=== PATIENT | female | born 1950 | race Caucasian/White ===

== ENCOUNTER → 2017-08-11 15:14 | Outpatient (CLI) | payer MEDICARE, OTHER, SELFPAY ==
--- NOTE | 2017-08-14 14:41 | PM.PFT.1 ---
Pulmonary Function Test Referral & Results Date Patient Seen: 08/11/17 Requesting provider: Asia Hoskins Results: The spirometry demonstrates an FVC of 3.04 L which is 102% of predicted. The FEV1 was measured at 2.01 L which is 88% of predicted. The FEV1/FVC ratio was 66 which is 85% of predicted. Following the administration of bronchodilator there was no appreciable change. Lung volumes show an SVC of 3.33 L which is 118% of predicted. The diffusing capacity was measured at 19.33 which is 84% of predicted. No hemoglobin value was provided, so no correction for potential anemia could be made, if appropriate. The maximum voluntary ventilation was reduced. Interpretation: This study demonstrates mild obstructive lung disease without evidence of benefit following the administration of bronchodilator
== END ==
PROVIDERS: Visit Provider Nurse Practitioner Family
DX: R05 Cough (principal)
CPT/HCPCS: 94010; 94060; 94726; 94729

== ENCOUNTER → 2018-04-15 12:01 | Outpatient (CLI) | payer MEDICARE, OTHER, SELFPAY ==
--- NOTE | 2018-04-15 | DI.US.S_ITS ---
PROCEDURE: US ABDOMEN COMPLETE INDICATIONS: CIRRHOSIS SURVEILLANCE TECHNIQUE: Real-time scanning was performed of the abdominal and retroperitoneal organs, with image documentation. COMPARISON: [facility], CT, ABDOMEN/PELVIS WITH CONTRAST, 09/14/2014, 22:06. FINDINGS: Liver: Liver is normal in size and moderately heterogeneous in echotexture with slight nodular margination along it's capsular border. There is a focal low density 8 x 9 x 9 mm focus at the right posterior liver margin, middle third of the liver parenchyma, appearing to correlate with the finding from CT scan in 09/14/14. But more anteriorly within the right hepatic lobe near the junction with the left medial hepatic segment there is a 7 x 6 by 8mm mildly hyperechoic structure that is rounded, somewhat indistinctly marginated potentially a manifestation of early hepatoma. Gallbladder: The gallbladder appears normal Biliary ducts: Intrahepatic bile ducts are non-dilated. Extrahepatic bile duct caliber measures 4.0 mm. Normal is 6-7 mm or less in diameter, or 10 mm or less post-cholecystectomy. Pancreas: Visualized portions of the pancreas are sonographically normal. Spleen: Spleen is normal in size and homogeneous in echotexture. Kidneys: Kidneys are normal in size and echotexture. Right kidney measures 9.7 cm long; left kidney measures 11.2 cm long. No hydronephrosis or nephrolithiasis. No solid masses. Aorta: Visualized aorta is normal in caliber at less than 3 cm. Iliacs: Proximal common iliac arteries are normal in caliber at less than 2.5 cm. IVC: Intrahepatic inferior vena cava is patent. Miscellaneous: No free abdominal fluid. Portal vein flow direction is normal. The spleen is at the upper limits of normal. IMPRESSION: Cirrhotic change involving the liver is present, including hepatic nodular margination which appears stable over time. 2 separate small liver lesions are present within the right hepatic lobe, one of which may have been present on prior CT scanning from August 2014. Followup by hepatic neoplasm MR scanning without and with contrast likely this warranted given these findings. Alternatively, followup by repeat ultrasound in 3-6 months may be warranted. Dictated by: Tobias Islas M.D. on 04/16/2018 at 10:11 Approved by: Tobias Islas M.D. on 04/16/2018 at 10:19
[2018-04-15 13:35] LABS: Add Manual Diff / Slide Review NO; Basophils Absolute Auto 0 /uL (0-100); Basophils Percent Auto 0.3 % (0-2); Eosinophils Absolute Auto 100 /uL (0-450); Eosinophils Percent Auto 2.2 % (2-4); Hematocrit 37.9 % (36-46); Lymphocytes Absolute Auto 1700 /uL (1100-4500); Lymphocytes Percent Auto 35.5 % (25-40); Mean Corpuscular HGB Conc 31.7 % (30-36); Mean Corpuscular Hemoglobin 22.6 PG (26-34); Mean Corpuscular Volume 71.2 fL (80-100); Monocytes Absolute Auto 300 /uL (0-900); Monocytes Percent Auto 6.1 % (3-14); Neutrophils Absolute Auto 2600 /uL (1500-7000); Neutrophils Percent Auto 55.9 % (50-75); Platelet Count 118 X10^3/uL (150-400); Red Blood Cell Count 5.32 X10^6/uL (4.0-5.2); Red Cell Distribution Width 16.6 % (11.6-14.8); White Blood Cell Count 4.7 X10^3/uL (4.5-11.0)
[2018-04-15 13:52] LABS: INR 1.2 (0.9-1.3); Prothrombin Time 13.5 SECONDS (10.1-12.7)
[2018-04-15 14:08] LABS: Alanine Aminotransferase 37 IU/L (9-52); Albumin 4.9 g/dL (3.5-5.0); Albumin Globulin Ratio 1.5 (1.0-2.8); Alkaline Phosphatase 84 U/L (38-126); Aspartate Aminotransferase 24 IU/L (14-36); BUN Creatinine Ratio 24.3 (6-22); Bilirubin Total 0.6 mg/dL (0.2-1.3); Blood Urea Nitrogen 17 mg/dL (7-17); Calcium 9.9 mg/dL (8.4-10.2); Carbon Dioxide 26 mmol/L (22-32); Chloride 103 mmol/L (98-107); Estimated Glomerular Filt Rate > 60.0 mL/min (>60); Globulin 3.3 g/dL (1.7-4.1); Glucose 94 mg/dL (80-110); HEMOLYSIS < 15 (0-50); Potassium 4.5 mmol/L (3.4-5.1); Sodium 141 mmol/L (137-145); Total Protein 8.2 g/dL (6.3-8.2)
== END ==
PROVIDERS: PCP Nurse Practitioner Family; Visit Provider Internal Medicine Gastroenterology
DX: K74.60 Unspecified cirrhosis of liver (principal); K76.9 Liver disease, unspecified
CPT/HCPCS: 36415; 76700; 80053; 85025; 85610

== ENCOUNTER → 2019-02-10 10:58 | Outpatient (CLI) | payer MEDICARE, OTHER, SELFPAY ==
--- NOTE | 2019-02-10 | DI.RAD.S_ITS ---
PROCEDURE: XR CHEST 2V INDICATIONS: CHRONIC COUGH TECHNIQUE: 2 views of the chest were acquired. COMPARISON: None. FINDINGS: Surgical changes and devices: None. Lungs and pleura: Lungs are clear. No pleural effusions or pneumothorax. Mediastinum: Mediastinal contours are normal. Heart size is normal. Bones and chest wall: No suspicious bony abnormalities. Soft tissues appear unremarkable. IMPRESSION: No acute cardiopulmonary disease. Dictated by: Mary Koch M.D. on 02/10/2019 at 14:25 Approved by: Mary Koch M.D. on 02/10/2019 at 14:26
== END ==
PROVIDERS: PCP Family Medicine; Visit Provider Family Medicine
DX: R05 Cough (principal)
CPT/HCPCS: 71046

== ENCOUNTER → 2019-09-29 12:45 | Outpatient (CLI) | payer MEDICARE, OTHER, SELFPAY ==
--- NOTE | 2019-09-29 | DI.RAD.S_ITS ---
PROCEDURE: XR LUMBAR SPINE 2-3V INDICATIONS: Lumbago with sciatica, right side TECHNIQUE: 3 views of the lumbar spine were acquired. COMPARISON: None. FINDINGS: Bones: 5 [id number] vertebrae are present. Mild levoscoliosis centered at the L4 level. Trace multilevel retrolisthesis. Multilevel disc degeneration, most notably and moderate at the L2-L3 and L3-L4 levels. Moderate L4-L5 and L5-S1 facet joint arthropathy. No vertebral body compression fractures. No suspicious bony lesions. Soft tissues: Overlying bowel gas pattern is normal. No suspicious soft tissue calcifications. IMPRESSION: Multilevel spondylosis. Dictated by: David Thompson [facility] Interpreted: Mary Koch MD on 09/29/2019 at 13:36 Approved by: Mary Koch M.D. on 09/29/2019 at 17:07
== END ==
PROVIDERS: PCP Family Medicine; Referring Provider Family Medicine; Visit Provider Family Medicine
DX: M54.41 Lumbago with sciatica, right side (principal); M47.816 Spondylosis without myelopathy or radiculopathy, lumbar region; M47.817 Spondylosis without myelopathy or radiculopathy, lumbosacral region; G89.29 Other chronic pain
CPT/HCPCS: 72100

== ENCOUNTER → 2020-06-19 12:28 | Outpatient (CLI) | payer MEDICARE, OTHER, SELFPAY ==
[2020-06-19 20:11] LABS: Add Manual Diff / Slide Review NO; Basophils Absolute Auto 0 /uL (0-100); Basophils Percent Auto 0.3 % (0-2); Eosinophils Absolute Auto 100 /uL (0-450); Eosinophils Percent Auto 3.1 % (2-4); Hematocrit 34.3 % (36-46); Hemoglobin 10.9 g/dL (12.0-16.0); Lymphocytes Absolute Auto 1100 /uL (1100-4500); Lymphocytes Percent Auto 27.3 % (25-40); Mean Corpuscular HGB Conc 31.8 % (30-36); Mean Corpuscular Volume 72.2 fL (80-100); Monocytes Absolute Auto 300 /uL (0-900); Monocytes Percent Auto 7.4 % (3-14); Neutrophils Absolute Auto 2400 /uL (1500-7000); Neutrophils Percent Auto 61.9 % (50-75); Platelet Count 149 X10^3/uL (150-400); Red Blood Cell Count 4.75 X10^6/uL (4.0-5.2); Red Cell Distribution Width 16.1 % (11.6-14.8); White Blood Cell Count 3.9 X10^3/uL (4.5-11.0)
[2020-06-19 20:20] LABS: HEMOLYSIS < 15 (0-50); Iron 92 ug/dL (37-170)
[2020-06-19 20:29] LABS: Percent Iron Saturation 25 % (15-50); Total Iron Binding Capacity 369 ug/dL (265-497); Transferrin 293 mg/dL (206-381)
[2020-06-19 20:51] LABS: Ferritin 42 ng/mL (11-264)
== END ==
PROVIDERS: PCP Family Medicine; Visit Provider Family Medicine
DX: K76.6 Portal hypertension (principal); D56.9 Thalassemia, unspecified
CPT/HCPCS: 82728; 83540; 83550; 85025

== ENCOUNTER 2020-07-27 17:45 | Emergency (ER) | payer MEDICARE, OTHER, SELFPAY ==
[2020-07-27 18:01] VITALS: BP 188/89; PULSE 71; RESP 18; TEMP 37.1; O2SAT 100; BMI 27.7
--- NOTE | 2020-07-27 18:06 | DI.RAD.S_ITS ---
PROCEDURE: XR CHEST 2V INDICATIONS: Shortness of breath TECHNIQUE: 2 views of the chest were acquired. COMPARISON: [facility], CR, XR CHEST 2V, 02/10/2019, 11:09. FINDINGS: Surgical changes and devices: None. Lungs and pleura: Lungs are clear. No pleural effusions or pneumothorax. Mediastinum: Mediastinal contours are normal. Heart size is normal. Bones and chest wall: No suspicious bony abnormalities. Soft tissues appear unremarkable. IMPRESSION: No acute cardiopulmonary process demonstrated radiographically. Dictated by: Tyrell Lee M.D. on 07/27/2020 at 18:31 Approved by: Tyrell Lee M.D. on 07/27/2020 at 18:31
--- NOTE | 2020-07-27 18:07 | PC.NURSE ---
Being treated with iron infusions for anemia.
[2020-07-27 18:16] LABS: Add Manual Diff / Slide Review NO; Basophils Absolute Auto 0 /uL (0-100); Basophils Percent Auto 0.4 % (0-2); Eosinophils Absolute Auto 100 /uL (0-450); Eosinophils Percent Auto 2.7 % (2-4); Hemoglobin 11.3 g/dL (12.0-16.0); Lymphocytes Absolute Auto 1400 /uL (1100-4500); Lymphocytes Percent Auto 30.2 % (25-40); Mean Corpuscular HGB Conc 32.1 % (30-36); Mean Corpuscular Hemoglobin 23.5 PG (26-34); Mean Corpuscular Volume 73.1 fL (80-100); Monocytes Absolute Auto 300 /uL (0-900); Monocytes Percent Auto 7.5 % (3-14); Neutrophils Absolute Auto 2700 /uL (1500-7000); Neutrophils Percent Auto 59.2 % (50-75); Platelet Count 126 X10^3/uL (150-400); Red Blood Cell Count 4.79 X10^6/uL (4.0-5.2); Red Cell Distribution Width 18.5 % (11.6-14.8); White Blood Cell Count 4.6 X10^3/uL (4.5-11.0)
[2020-07-27 18:24] LABS: Alanine Aminotransferase 42 IU/L (<35); Albumin 4.4 g/dL (3.5-5.0); Albumin Globulin Ratio 1.4 (1.0-2.8); Alkaline Phosphatase 94 U/L (38-126); Aspartate Aminotransferase 41 IU/L (14-36); BUN Creatinine Ratio 34.8 (6-22); Bilirubin Total 0.5 mg/dL (0.2-1.3); Blood Urea Nitrogen 24 mg/dL (7-17); Calcium 9.4 mg/dL (8.4-10.2); Carbon Dioxide 22 mmol/L (22-32); Chloride 107 mmol/L (98-107); Estimated Glomerular Filt Rate > 60.0 mL/min (>60); Globulin 3.1 g/dL (1.7-4.1); Glucose 91 mg/dL (80-110); HEMOLYSIS 38 (0-50); Lactate (Lactic Acid) 0.9 mmol/L (0.7-2.1); Sodium 138 mmol/L (137-145); Total Protein 7.5 g/dL (6.3-8.2)
--- NOTE | 2020-07-27 18:48 | ED.SOB ---
HPI - SOB/Dyspnea General Chief Complaint: Shortness of Breath/Dyspnea Stated Complaint: SOB Time Seen by Provider: 07/27/20 17:59 Source: patient Mode of arrival: Family Vehicle Limitations: no limitations History of Present Illness HPI Narrative: 69F former smoker with history of liver disease, COPD, and anemia presents with her with a chief complaint of increasing shortness of breath with exertion for the past 2 weeks. She denies any chest pain, pressure, heaviness, nausea, vomiting. She denies any fever or chills. She has had no nausea or vomiting. She denies any abdominal pain, constipation or vaginal bleeding. She denies recent travel, history of blood clot or cancer. She denies any orthopnea, weight gain or swelling in her lower extremities. MD Complaint: shortness of breath Onset (ago): week(s) Severity: moderate Consistency/Duration: constant Relieving factors: rest Exacerbating factors: exertion Known history of: COPD Associated symptoms: denies other symptoms Treatment prior to arrival: none Related Data Home oxygen amount: none Home Medications Medication Instructions Recorded Confirmed albuterol sulfate 90 mcg/actuation 2 puff INHALATION Q4H PRN g 06/18/20 06/19/20 aerosol inhaler omeprazole 20 mg capsule,delayed 20 mg PO BID 06/18/20 06/19/20 release Previous Rx's Medication Instructions Recorded estradiol [Vagifem] 0 VG INSTRUCTE #24 tab 01/02/16 Allergies Allergy/AdvReac Type Severity Reaction Status Date / Time latex Allergy Unknown UNKNOWN Verified 07/27/20 18:01 ADHESIVES Allergy Mild RED RASH Uncoded 07/27/20 18:01 No Known Allergies Allergy Uncoded 07/27/20 18:01 Review of Systems Constitutional Constitutional: Denies chills, Denies fatigue, Denies fever(s), Denies frequent falls, Denies lethargy and Denies weakness Eyes Eyes: Denies change in vision, Denies eye discharge, Denies irritation and Denies loss of vision ENT Ears, Nose, Mouth, and Throat: Denies change in voice, Denies dizziness, Denies neck pain, Denies sore throat and Denies throat swelling Cardiovascular Cardiovascular: Denies chest pain, Denies irregular heart rhythm, Denies lightheadedness, Denies palpitations, Reports dyspnea, Reports dyspnea on exertion and Denies orthopnea Respiratory Respiratory: Denies cough, Reports dyspnea, Reports dyspnea on exertion and Denies wheezing Gastrointestinal Gastrointestinal: Denies abdominal pain, Denies change in bowel habits, Denies diarrhea, Denies nausea and Denies vomiting Musculoskeletal Musculoskeletal: Denies neck pain and Denies numbness Integumentary/Breasts Skin/Breast: Denies pruritus, Denies erythema, Denies rash and Denies wounds Neurologic Neurologic: Denies behavioral changes, Denies confusion, Denies dizziness, Denies frequent falls, Denies loss of vision, Denies numbness and Denies weakness Psychiatric Psychiatric: Denies anxiety, Denies behavioral changes, Denies confusion, Denies depression, Denies homicidal ideation and Denies suicidal ideation Endocrine Endocrine: Denies fatigue, Denies flushing and Denies palpitations Hematologic/Lymphatic Hematologic/Lymphatic: Denies easy bruising Allergic/Immunologic Allergic/Immunologic: Denies urticaria, Denies throat swelling and Denies wheezing Patient History Medical History Hearing loss Hepatitis C Liver disease Family History Father Cancer Sister Diabetes mellitus History of being obese Social History Smoking Status: Former smoker Smoking Status: Former smoker tobacco type: cigarettes and vaping alcohol intake frequency: 0-2 drinks per day Alcohol type: wine Substance Use Type: marijuana Exam Narrative Exam Narrative: GENERAL: [69] year old patient appears stated age. Well-developed patient, in mild distress. HEAD: Atraumatic. Normocephalic. EYES: Pupils equal round and reactive. Extraocular motions intact. No scleral icterus. No injection or drainage. ENT: Nose without bleeding, purulent drainage. Throat without erythema, tonsillar hypertrophy or exudate. Airway patent. NECK: Trachea midline. Non tender CARDIOVASCULAR: Regular rate and rhythm without murmurs, gallops, or rubs. RESPIRATORY: Clear to auscultation. Breath sounds equal bilaterally. No wheezes, rales, or rhonchi. GASTROINTESTINAL: Abdomen soft, non-tender, nondistended. EXTREMITIES: No edema or joint tenderness. BACK: Nontender without deformity or crepitance. No flank tenderness. NEURO: AOx3. SKIN: No rash or erythema of visible areas Initial Vital Signs Initial Vital Signs: Vital Signs Temperature 98.7 F 07/27/20 18:01 Pulse Rate 71 07/27/20 18:01 Respiratory Rate 18 07/27/20 18:01 Blood Pressure 188/89 H 07/27/20 18:01 Pulse Oximetry 100 07/27/20 18:01 Course Orders Ordered: ED Orders 07/27/20 18:06 XR chest 2V Stat EKG-12 Lead Stat Measure peak expiratory flow ONCE RT Consult Eval and Treat Now 07/27/20 18:11 Complete Blood Count AUTO DIFF Stat Comprehensive Metabolic Panel Stat Lactate (Lactic Acid) Stat NT-proBNP (BNP-Adult 18+) Stat Troponin & CK Cardiac Panel Stat 07/27/20 20:21 CT angio chest PE protocol Stat Vital Signs Vital signs: Vital Signs - 8 hr 07/27/20 18:54 07/27/20 19:00 07/27/20 19:01 Pulse Rate 63 62 62 Blood Pressure 159/71 H Pulse Oximetry 99 97 96 MDM - SOB/Dyspnea Lab Data Result diagrams: 07/27/20 18:11 07/27/20 18:11 Labs: Lab Results 07/27/20 07/27/20 07/27/20 Range/Units 18:11 18:11 18:11 WBC 4.6 (4.5-11.0) X10^3/uL RBC 4.79 (4.0-5.2) X10^6/uL Hgb 11.3 L (12.0-16.0) g/dL Hct 35.0 L (36-46) % MCV 73.1 L (80-100) fL MCH 23.5 L (26-34) PG MCHC 32.1 (30-36) % RDW 18.5 H (11.6-14.8) % Plt Count 126 L (150-400) X10^3/uL Neut % (Auto) 59.2 (50-75) % Lymph % (Auto) 30.2 (25-40) % [place] % (Auto) 7.5 (3-14) % Eos % (Auto) 2.7 (2-4) % Baso % (Auto) 0.4 (0-2) % Neut # (Auto) 2700 (6182-6882) /uL Lymph # (Auto) 1400 (7641-1317) /uL [place] # (Auto) 300 (0-900) /uL Eos # (Auto) 100 (0-450) /uL Baso # (Auto) 0 (0-100) /uL Sodium 138 (137-145) mmol/L Potassium 4.0 (3.4-5.1) mmol/L Chloride 107 (98-107) mmol/L Carbon Dioxide 22 (22-32) mmol/L BUN 24 H (7-17) mg/dL Creatinine 0.69 (0.52-1.04) mg/dL Estimated GFR > 60.0 (>60) mL/min BUN/Creatinine Ratio 34.8 H (6-22) Glucose 91 (80-110) mg/dL Lactate 0.9 (0.7-2.1) mmol/L Calcium 9.4 (8.4-10.2) mg/dL Total Bilirubin 0.5 (0.2-1.3) mg/dL AST 41 H (14-36) IU/L ALT 42 H (<35) IU/L Alkaline Phosphatase 94 (38-126) U/L Total Creatine Kinase (30-135) U/L CK-MB (CK-2) CK-MB (CK-2) Rel Index Troponin I (0.01-0.034) ng/mL NT-Pro-B Natriuret Pep (<125) pg/mL Total Protein 7.5 (6.3-8.2) g/dL Albumin 4.4 (3.5-5.0) g/dL Globulin 3.1 (1.7-4.1) g/dL Albumin/Globulin Ratio 1.4 (1.0-2.8) 07/27/20 Range/Units 18:11 WBC (4.5-11.0) X10^3/uL RBC (4.0-5.2) X10^6/uL Hgb (12.0-16.0) g/dL Hct (36-46) % MCV (80-100) fL MCH (26-34) PG MCHC (30-36) % RDW (11.6-14.8) % Plt Count (150-400) X10^3/uL Neut % (Auto) (50-75) % Lymph % (Auto) (25-40) % [place] % (Auto) (3-14) % Eos % (Auto) (2-4) % Baso % (Auto) (0-2) % Neut # (Auto) (2407-2586) /uL Lymph # (Auto) (8859-9927) /uL [place] # (Auto) (0-900) /uL Eos # (Auto) (0-450) /uL Baso # (Auto) (0-100) /uL Sodium (137-145) mmol/L Potassium (3.4-5.1) mmol/L Chloride (98-107) mmol/L Carbon Dioxide (22-32) mmol/L BUN (7-17) mg/dL Creatinine (0.52-1.04) mg/dL Estimated GFR (>60) mL/min BUN/Creatinine Ratio (6-22) Glucose (80-110) mg/dL Lactate (0.7-2.1) mmol/L Calcium (8.4-10.2) mg/dL Total Bilirubin (0.2-1.3) mg/dL AST (14-36) IU/L ALT (<35) IU/L Alkaline Phosphatase (38-126) U/L Total Creatine Kinase 32 (30-135) U/L CK-MB (CK-2) TNP CK-MB (CK-2) Rel Index TNP Troponin I < 0.012 (0.01-0.034) ng/mL NT-Pro-B Natriuret Pep 423 H (<125) pg/mL Total Protein (6.3-8.2) g/dL Albumin (3.5-5.0) g/dL Globulin (1.7-4.1) g/dL Albumin/Globulin Ratio (1.0-2.8) Imaging Data Chest x-ray: Radiologist's Impression: [address] [id number] ReportSigned Patient: Amy Patel FMR#: [id number]: [id number]:[id number]/Sex: 69 / FDate of Service: 07/27/20Loc: EDAccession Number: [id number] Procedure: XR chest 2V Ordering Provider: Rafita Steven D.O. PROCEDURE: XR CHEST 2V INDICATIONS: Shortness of breath TECHNIQUE: 2 views of the chest were acquired. COMPARISON: [facility], CR, XR CHEST 2V, 02/10/2019, 11:09. FINDINGS: Surgical changes and devices: None. Lungs and pleura: Lungs are clear. No pleural effusions or pneumothorax. Mediastinum: Mediastinal contours are normal. Heart size is normal. Bones and chest wall: No suspicious bony abnormalities. Soft tissues appear unremarkable. IMPRESSION: No acute cardiopulmonary process demonstrated radiographically. Dictated by: Tyrell Lee M.D. on 07/27/2020 at 18:31 Approved by: Tyrell Lee M.D. on 07/27/2020 at 18:31 ECG Data Interpretation: EKG is normal sinus rhythm rate [63] and free of any signs of ischemia or ectopy. No ST segmental elevation or depression. No T wave inversions MDM Narrative Medical decision making narrative: 69-year-old female with progressive dyspnea has reasuring exam and vitals. Ambulates through department without drop in SpO2 below 96% or incrased work of breathing or other cardiac equivalent. CTA shows now PTX, PNA, PE, or pericardial effusion. It would seem that was such a reassuring workup that her dyspnea could surely be multifactorial and includes some level of her iron deficiency anemia, COPD, among others. Extensive discussion with patient and , return precautions given and questions answered to their apparent satisfaction Discharge Plan Departure Patient Disposition: Home Clinical Impression: Acute dyspnea Instructions: DI for Shortness of Breath Activity Restrictions/Additional Instructions: *You have been diagnosed with [acute dyspnea. Your physical exam, lab work, EKGs and imaging are very reassuring.] *What to do: *Please continue to take your regular medications as directed. [ ] New medication prescriptions sent to your pharmacy: [ ] [ ] New medication written as a paper prescription [x ] No new medications given *Please follow up with your primary care provider. call for an appointment. Let them know you were seen in the Emergency Department and that we ask that you be seen in follow up. We will electronically transmit a record of today's note if your PCP is in our system *It would be reasonable to talk with your doctor about their thoughts about getting you set up with an echocardiogram and a stress test as an outpatient to furter evaluate your shortness of breath *Return to Emergency Department if you should have any new, worsening or concerning symptoms, such as [fever greater than 101 F, shaking chills, worsening pain, persistent vomiting or other bothersome symptoms] Prescriptions: No Action estradiol [Vagifem] 10 MCG tablet 0 VG INSTRUCTE Qty: 24 RF: 3 omeprazole 20 mg capsule,delayed release(DR/EC) 20 mg PO BID RF: 0 albuterol sulfate 90 mcg/actuation HFA aerosol inhaler 2 puff inhalation Q4H PRNRF: 0 Referrals: Paz Burns MD [Primary Care Provider] -
[2020-07-27 18:54] VITALS: PULSE 63; O2SAT 99
[2020-07-27 18:59] LABS: Creatine Kinase 32 U/L (30-135)
[2020-07-27 19:00] VITALS: PULSE 62; O2SAT 97
[2020-07-27 19:01] VITALS: BP 159/71; PULSE 62; O2SAT 96
[2020-07-27 19:12] LABS: NT-proBNP (BNP-Adult 18+) 423 pg/mL (<125); Troponin I < 0.012 ng/mL (0.01-0.034)
--- NOTE | 2020-07-27 20:21 | DI.CT.S_ITS ---
PROCEDURE: CT ANGIO CHEST PE PROTOCOL INDICATIONS: profound shortness of breath TECHNIQUE: After the administration of intravenous contrast, 2 mm thick sections acquired from the pulmonary apices to the posterior costophrenic angles. 3-dimensional maximum intensity projection (MIP) coronal and sagittal reformats were then acquired through the thorax. For radiation dose reduction, the following was used: automated exposure control, adjustment of mA and/or kV according to patient size. COMPARISON: None. FINDINGS: Image quality: Excellent. Pulmonary arteries: No pulmonary artery filling defect. Lungs and pleura: Small ground-glass airspace opacity in the left upper lobe on series 4, image 22 measuring 9 millimeters. There are few scattered tiny ground-glass airspace opacities elsewhere, nonspecific. No focal consolidation. No pleural effusion or other significant pleural abnormality. Mediastinum: Normal heart size. No pericardial effusion. Normal caliber thoracic aorta with mild atherosclerotic change. Bones and chest wall: No acute or suspicious osseous lesion. Abdomen: Partially visualized upper abdomen demonstrates the cirrhosis with splenomegaly and portal venous enlargement likely reflective of portal hypertension along with some varices in the upper abdomen. Nonspecific posterior right hepatic lobe hypodensity measuring 9 millimeters. IMPRESSION: No evidence of pulmonary embolism. Cirrhosis with portal hypertension and splenomegaly along with some upper abdominal varices. Non-specific hepatic hypodensity in the posterior right hepatic lobe measuring 9 millimeters. Please note that the patient reportedly had hepatic MRI earlier today at an outside institution. Dictated by: Tyrell Lee M.D. on 07/27/2020 at 20:55 Approved by: Tyrell Lee M.D. on 07/27/2020 at 20:58
== END 2020-07-27 22:32 | disposition home or self-care (01) ==
PROVIDERS: Emergency Provider Emergency Medicine; PCP Family Medicine
DX: R06.00 Dyspnea, unspecified (principal)
CPT/HCPCS: 36415; 71046; 71275; 80053; 82550; 83605; 83880; 84484; 85025; 93005; 99283; 99284; Q9967